=== PATIENT | female | born 2000 | race Caucasian/White ===

== ENCOUNTER 2019-09-10 16:16 | Emergency (ER) | payer BC, OTHER ==
[~2019-09-10] VITALS: Ht 160 cm; Wt 47.6 kg
[2019-09-10 16:22] VITALS: BP_SYST 139
--- NOTE | 2019-09-10 16:28 | NUR ---
Patient to ER bed 04 to gown for evaluation. Side rails up. Report given to YVES Agrawal
--- NOTE | 2019-09-10 16:29 | NUR ---
Patient brought in complaining of diffuse itchy rash starting 1 hour prior to arrival after changing showel soap. Patient denies any shortness of beath but reports tongue swelling. Pain 4/10. No other complaints/injuries per patient or as noted. Will continue to monitor.
[2019-09-10] MEDS ORDERED: DEXAMETHASONE SOD PHOSPHATE 10 MG/ML VIAL IM ONE (16:30)
--- NOTE | 2019-09-10 16:31 | NUR ---
MAKAYLA Ann at bedside examining patient.
[2019-09-10] MEDS ORDERED: EPINEPHrine 1 MG/ML AMP IM ONE (17:15)
--- NOTE | 2019-09-10 17:35 | NUR ---
epinephrine 0.3 mg im administered.
--- NOTE | 2019-09-10 17:47 | NUR ---
hives subsiding, stated itchy better. denies difficulty of breathing. vital sign stable, afebrile. no other concerned noted.
[2019-09-10 18:00] VITALS: BP_SYST 121
--- NOTE | 2019-09-10 18:00 | NUR ---
Patient given written and verbal discharge instructions and verbalizes understanding. ER MD discussed with patient the results and treatment provided. Patient in stable condition. ID arm band removed. Rx of prednisone and benadryl given. Patient educated on pain management and to follow up with PMD. Pain Scale 0. Opportunity for questions provided and answered. Medication side effect fact sheet provide.
== END 2019-09-10 18:00 | disposition home or self-care (01) ==
LOC: SED 16:16
DX: T78.49XA Other allergy, initial encounter (principal); J45.909 Unspecified asthma, uncomplicated; F41.9 Anxiety disorder, unspecified; X58.XXXA Exposure to other specified factors, initial encounter
CPT/HCPCS: 96372; 99283; J0171; J1100

== ENCOUNTER 2019-11-17 09:22 | Emergency (ER) | payer OTHER ==
[~2019-11-17] VITALS: Ht 160 cm; Wt 52.2 kg
[2019-11-17 09:24] VITALS: BP_SYST 153
--- NOTE | 2019-11-17 09:24 | NUR ---
Placed in room 3 . Placed on surveillance system monitor, blood pressure machine and pulse oximeter. To gown for exam. Side rails up. Report given to YVES Ramírez.
--- NOTE | 2019-11-17 09:32 | NUR ---
Patient arrived in the ED c/o dizziness, chest pain, numbness and tingling on arms and legs. Denied any chest pain or shortness of breath. Denied any fevers, nausea, vomiting, or chills. Patient is alert and oriented x4, respirations even and unlabored, speaking in full sentences, ambulating with a steady gait. VSS, pain level 7/10. Informed of wait time. Instructed to notify ED staff for any changes in condition or worsening of symptoms. Patient verbalized understanding.
--- NOTE | 2019-11-17 09:35 | NUR ---
ECG done at bedside as ordered by Dr. Montenegro. Patient tolerated the procedure well. Report given to .
--- NOTE | 2019-11-17 09:41 | NUR ---
ER Dr. Montenegro at bedside examining patient.
[2019-11-17] MEDS ORDERED: LORazepam 2 MG/ML VIAL IVP ONE (09:45)
[2019-11-17] MEDS ORDERED: NACL 0.9% 1,000 ML IV ONE (09:45)
--- NOTE | 2019-11-17 10:00 | NUR ---
Patient ambulated to the bathroom with a steady gait. Urine specimen collected. Patient tolerated the activity well.
--- NOTE | 2019-11-17 10:15 | NUR ---
Patient in bed, feeling dizzy, on rebreather, O2 sat 100%. Boyfriend at bedside. Received report from Desiree. Patient had 1 quarter size sanguanous mucous discharge but could not urinate. Dr. Montenegro aware. will continue to monitor
[2019-11-17 10:20] LABS: BASOPHILS # (AUTO) 0.1 K/uL (0.0-0.2); BASOPHILS % (AUTO) 0.8 % (0.0-2.0); EOSINOPHILS # (AUTO) 0.5 K/uL (0.0-0.4); EOSINOPHILS % (AUTO) 3.9 % (0.0-4.0); HEMATOCRIT 46.4 % (36-48); HEMOGLOBIN 15.4 g/dL (12.0-16.0); LYMPHOCYTES # (AUTO) 2.9 K/uL (1.0-5.5); LYMPHOCYTES % (AUTO) 22.2 % (20.5-51.5); MEAN CORPUSCULAR HEMOGLOBIN 29 pg (27-31); MEAN CORPUSCULAR HGB CONC 33 % (32-36); MEAN CORPUSCULAR VOLUME 87 fL (79.0-98.0); MONOCYTES # (AUTO) 1.1 K/uL (0.0-1.0); MONOCYTES % (AUTO) 8.4 % (1.7-9.3); NEUTROPHILS # (AUTO) 8.4 K/uL (1.8-7.7); NEUTROPHILS % (AUTO) 64.7 % (40.0-70.0); PLATELET COUNT (AUTO) 267 K/uL (130-430); RED BLOOD CELL COUNT(AUTO) 5.32 MIL/uL (4.2-6.2); RED CELL DISTRIBUTION WIDTH 13.7 % (9.0-15.0)
[2019-11-17 10:38] LABS: ANION GAP 15 (5-15); CALCIUM 8.6 mg/dL (8.4-11.0); CHLORIDE 99 mmol/L (98-107); CREATININE 0.81 mg/dL (0.55-1.30); GLUCOSE 100 mg/dL (70-99); INR 1.1 (0.8-1.2); PROTHROMBIN TIME 11.5 SECS (9.5-12.5); SODIUM SERUM 137 mmol/L (136-145); UREA NITROGEN, BLOOD 7 mg/dL (8-21)
[2019-11-17 10:50] LABS: ALANINE AMINOTRANSFERASE 95 U/L (12-78); ALBUMIN 4.1 g/dL (3.4-4.8); ASPARTATE AMINOTRANSFERASE 103 U/L (10-37); TOTAL BILIRUBIN 0.7 mg/dL (0.0-1.0)
[2019-11-17 10:52] LABS: GFR AFRICAN AMERICAN 116 mL/min (>90)
[2019-11-17 10:53] LABS: POTASSIUM 2.6 mmol/L (3.5-5.1)
[2019-11-17 10:54] LABS: ALCOHOL, BLOOD < 3 mg/dL (<10)
[2019-11-17] MEDS ORDERED: POTASSIUM CHLORIDE 20 MEQ/PKT PACKET PO ONE (11:00)
--- NOTE | 2019-11-17 11:00 | NUR ---
patient in bed, states still dizzy but improving. heart rate still in 120's and Dr. arshad aware. will continue to monitor.
[2019-11-17] MEDS ORDERED: cefTRIAXone 1 GM IVPB PREMIX 50 ML IV ONE (11:30)
--- NOTE | 2019-11-17 11:30 | NUR ---
patient indicates does not want to take ativan, make her "feel funny", dr arshad made aware.
--- NOTE | 2019-11-17 12:15 | NUR ---
patient in bed, mom at bedside. no s/s of acute distress noted. Heart rate elevated, dr arshad aware.
--- NOTE | 2019-11-17 12:55 | NUR ---
patient agrees to take ativan after dr. arshad explains needs to increased heart rate. will administer ativan.
[2019-11-17] MEDS ORDERED: LORazepam 2 MG/ML VIAL ONE (13:14)
[2019-11-17 13:33] LABS: BILIRUBIN,URINE NEGATIVE (NEGATIVE); BLOOD, URINE 2+ (NEGATIVE); CLARITY/URINE CLEAR (CLEAR); COLOR,URINE YELLOW (YELLOW); GLUCOSE,URINE NEGATIVE (NEGATIVE); KETONES,URINE 1+ (NEGATIVE); LEUKOCYTE ESTERASE ,URINE NEGATIVE (NEGATIVE); NITRITE, URINE NEGATIVE (NEGATIVE); PROTEIN URINE NEGATIVE (NEGATIVE); UROBILINOGEN,URINE 0.2 (0.2-1.0)
--- NOTE | 2019-11-17 13:55 | NUR ---
endorsed care to YVES Fung for lunch break.
[2019-11-17 14:04] LABS: BACTERIA,URINE FEW /HPF (None Seen); MUCUS,URINE 1+ /LPF (None Seen); WBC,URINE 0-3 /HPF (0-3)
[2019-11-17 14:06] LABS: BARBITURATE, URINE NEGATIVE (NEG <=200); BENZODIAZEPINE, URINE NEGATIVE (NEG <=150); CANNABINOID, URINE POSITIVE (NEG <=50); COCAINE, URINE NEGATIVE (NEG <=150); METHAMPHETAMINES SCREEN,URINE NEGATIVE (NEG <=500); OPIATE, URINE POSITIVE (NEG <=100); PHENCYCLIDINE SCREEN,URINE NEGATIVE (NEG <=25); UR TRICYCLIC ANTIDEPRESSANTS NEGATIVE (NEG <=300); URINE AMPHETAMINE NEGATIVE (NEG <=500); URINE METHADONE NEGATIVE (NEG <=200); URINE OXYCODONE SCREEN NEGATIVE (NEG <=100); URINE PROPOXYPHENE SCREEN NEGATIVE (NEG <=300)
[2019-11-17] MEDS ORDERED: ALPRAZolam 0.25 MG TABLET PO ONE (14:15)
[2019-11-17 16:30] VITALS: BP_SYST 153
== END 2019-11-17 14:30 | disposition home or self-care (01) ==
LOC: SED 09:22
DX: R00.0 Tachycardia, unspecified (principal); F11.10 Opioid abuse, uncomplicated; F12.10 Cannabis abuse, uncomplicated; J45.909 Unspecified asthma, uncomplicated; F17.290 Nicotine dependence, other tobacco product, uncomplicated; Z71.6 Tobacco abuse counseling
CPT/HCPCS: 36415; 71045; 80053; 80307; 81000; 83605; 84439; 84484; 84703; 85025; 85379; 85610; 87040; 93005; 96361; 96365; 96375; 99285; G0482; J0696; J2060; 81002

== ENCOUNTER 2023-05-13 20:59 | Emergency (ER) | payer BC, OTHER ==
[~2023-05-13] VITALS: Ht 160 cm; Wt 73.5 kg
[2023-05-13 21:29] VITALS: BP_SYST 123; PULSE 155; RESP 25; TEMP 97.7; O2SAT 100
[2023-05-13 22:29] LABS: BASOPHILS % (AUTO) 0.4 % (0.0-2.0); EOSINOPHILS # (AUTO) 0.2 K/uL (0.0-0.4); EOSINOPHILS % (AUTO) 1.6 % (0.0-4.0); HEMATOCRIT 43.9 % (36-48); HEMOGLOBIN 14.7 g/dL (12.0-16.0); LYMPHOCYTES # (AUTO) 3.7 K/uL (1.0-5.5); MEAN CORPUSCULAR HEMOGLOBIN 31 pg (27-31); MEAN CORPUSCULAR HGB CONC 34 % (32-36); MEAN CORPUSCULAR VOLUME 91 fL (79.0-98.0); MONOCYTES # (AUTO) 1.2 K/uL (0.0-1.0); MONOCYTES % (AUTO) 9.5 % (1.7-9.3); NEUTROPHILS # (AUTO) 7.5 K/uL (1.8-7.7); NEUTROPHILS % (AUTO) 59.5 % (40.0-70.0); PLATELET COUNT (AUTO) 388 K/uL (130-430); RED BLOOD CELL COUNT(AUTO) 4.82 MIL/uL (4.2-6.2); RED CELL DISTRIBUTION WIDTH 14.8 % (9.0-15.0); WHITE BLOOD COUNT (AUTO) 12.7 K/uL (4.8-10.8)
[2023-05-13 22:31] LABS: CALCIUM 8.6 mg/dL (8.4-11.0); CREATININE 0.53 mg/dL (0.55-1.30); POTASSIUM 3.7 mmol/L (3.5-5.1)
[2023-05-13] MEDS ORDERED: LORazepam 2 MG/ML VIAL IVP ONE (23:00)
[2023-05-13 23:57] LABS: ALANINE AMINOTRANSFERASE 12 U/L (12-78); ASPARTATE AMINOTRANSFERASE 30 U/L (10-37); BILIRUBIN,DIRECT 0.1 mg/dL (0.0-0.3); SALICYLATE 1 mg/dL (3-30); TOTAL BILIRUBIN 0.4 mg/dL (0.0-1.0); TOTAL PROTEIN, SERUM 7.1 g/dL (6.4-8.3)
[2023-05-14 00:30] VITALS: BP_SYST 134; PULSE 140; RESP 16; TEMP 98.1; O2SAT 97
[2023-05-14 01:02] LABS: ACETAMINOPHEN < 1 ug/mL (1-30)
== END 2023-05-14 00:30 | disposition left against medical advice (07) ==
LOC: SED 20:59
DX: R00.0 Tachycardia, unspecified (principal); R07.89 Other chest pain; J45.909 Unspecified asthma, uncomplicated; F11.20 Opioid dependence, uncomplicated; Z79.899 Other long term (current) drug therapy
CPT/HCPCS: 99283; 80076; 80048; 83880; 85025; 84484; 36415; 81025; G0481; G0480; 93005